=== PATIENT | male | born 1960 | race Caucasian/White ===

== ENCOUNTER → 2017-11-02 17:30 | Outpatient (CLI) | payer OTHER, SELFPAY ==
--- NOTE | 2017-11-02 08:18 | COLBX_PTH ---
PATIENT: SOFIA MEDELLIN LOC: [facility] U#:[id number] AGE/SX: 64/M ROOM: RE11/02/[address]: Dr. Jerry Dillon MD : 1960 BED: DIS: SPEC #: [id number] RECD: 11/02/17 15:34 STATUS: GINO TURNERTony #: [id number] DONG: 11/02/17 08:[address]: Jerry Dillon DEPT: SURGICAL PATHOLOGY RECD BY: Den White ENTERED: 11/05/17 07:53 SP TYPE: COLON BX OTHR DR: Dr. Catrachito Bruno MD [facility] Tissues: A - Right colon B - Sigmoid colon biopsy C - Sigmoid colon biopsy D - Rectum, NOS Procedures: Surgery Specimen Level IV HEADER OPERATION: Colonoscopy with biopsies PRE-OP DIAGNOSIS: Diarrhea/UC TISSUE SUBMITTED: A. Right colon biopsies, rule out UC, B. Sigmoid colon, rule out active UC and dysplasia, C. Sigmoid polyp biopsies, rule out dysplasia, D. Rectal biopsies, rule out active colitis MICROSCOPIC DIAGNOSIS A. Right colon, biopsy: Mild architectural change. No evidence of colitis. B. Sigmoid colon, biopsy: Mild architectural change with minimal acute inflammation. No evidence of dysplasia. C. Sigmoid polyp, biopsy: Polypoid hyperplastic change and architectural distortion. Minimal acute inflammation. No evidence of dysplasia. D. Rectum, biopsy: Chronic active colitis pattern of injury with minimal activity. No evidence of dysplasia. AM:agustin 11/06/17 COMMENT A.-D. Findings are consistent with patient?s history of ulcerative colitis. Clinical correlation is suggested. MICROSCOPIC DESCRIPTION Slides are reviewed. GROSS DESCRIPTION A. Received in fixative is one container labeled with the patient's name and designated right colon biopsy. The specimen consists of multiple irregular fragments of light bauman soft tissue that in aggregate measure 1 x 0.5 x 0.1 cm. The specimen is totally submitted in one cassette. B. Received in fixative is one container labeled with the patient's name and designated sigmoid colon biopsy. The specimen consists of multiple irregular fragments of light bauman soft tissue that in aggregate measure 0.5 x 0.2 x 0.1 cm. The specimen is totally submitted in one cassette. C. Received in fixative is one container labeled with the patient's name and designated sigmoid polyp biopsy. The specimen consists of multiple irregular fragments of light bauman soft tissue that in aggregate measure 0.5 x 0.3 x 0.1 cm. The specimen is totally submitted in one cassette. D. Received in fixative is one container labeled with the patient's name and designated rectal biopsy. The specimen consists of multiple irregular fragments of light bauman soft tissue that in aggregate measure 0.5 x 0.3 x 0.1 cm. The specimen is totally submitted in one cassette. SJ:sp 11/05/17 TC:2 CPT: 74829 x4
== END ==
PROVIDERS: Family Provider Family Medicine; Visit Provider Internal Medicine Gastroenterology
DX: K51.90 Ulcerative colitis, unspecified, without complications (principal); R19.7 Diarrhea, unspecified
CPT/HCPCS: 88305

== ENCOUNTER → 2018-04-03 16:41 | Outpatient (CLI) | payer OTHER, SELFPAY ==
[2017-04-11 09:00] VITALS: BMI 27.0
[2018-04-03 17:26] LABS: Hematocrit 46.1 % (40-54); Hemoglobin 14.7 g/dl (13.0-16.5); Mean Corp Hgb Conc 31.9 g/gl (32-36); Mean Corpuscular Hgb 29.2 pg (27.0-32.0); Mean Corpuscular Volume 91.7 fL (80-94); Mean Platelet Vol. 8.5 fl (6.2-12.0); Platelet Count 294 K/mm3 (150-450); RBC Distribution Width SD 43.3 fl (35.1-43.9); Red Blood Count 5.03 M/mm3 (4.6-6.2); White Blood Count 6.1 K/mm3 (4.4-11.0)
[2018-04-03 17:34] LABS: Scan Indicated on CBC? Y/N NO
[2018-04-03 17:50] LABS: Erythrocyte Sedimentation Rate 15 mm/hr (0-20)
[2018-04-03 18:11] LABS: ALB/GLOB Ratio 0.9 RATIO (0.9-2.4); AST(SGOT) 14 U/L (15-37); Alanine Aminotransfer ALT/SGPT 16 U/L (16-61); Albumin, Serum 3.7 g/dL (3.2-5.0); Alkaline Phosphatase 66 U/L (45-117); Anion Gap 6 (5-15); BUN 21 mg/dL (7-18); BUN/Creat Ratio 15.6 RATIO (10-20); CRP < 2.90 mg/L (0.0-3.0); Calcium,Total 8.8 mg/dL (8.5-10.1); Chloride 103 mmol/L (98-107); Creatinine, Serum 1.35 mg/dL (0.70-1.30); EST Glomerular Filtration Rate 58 mL/min (>60); Est Glom Filt Rate - Afr Amer 71 mL/min (>60); Globulin 4.2 g/dL (2.2-4.2); Glucose 78 mg/dL (74-106); Potassium 4.2 mmol/L (3.5-5.1); Protein, Total 7.9 g/dL (6.4-8.2); Sodium Level 139 mmol/L (136-145)
== END ==
PROVIDERS: Family Provider Family Medicine; PCP Family Medicine; Referring Provider Internal Medicine Gastroenterology; Visit Provider Internal Medicine Gastroenterology
DX: K51.90 Ulcerative colitis, unspecified, without complications (principal)
CPT/HCPCS: 36415; 80053; 85027; 85652; 86140

== ENCOUNTER → 2018-06-05 14:58 | Outpatient (CLI) | payer OTHER, SELFPAY ==
[2018-06-05 15:29] LABS: Albumin, Serum 3.9 g/dL (3.2-5.0); BUN 22 mg/dL (7-18); BUN/Creat Ratio 14.9 RATIO (10-20); Calcium,Total 8.6 mg/dL (8.5-10.1); Chloride 107 mmol/L (98-107); Creatinine, Serum 1.48 mg/dL (0.70-1.30); EST Glomerular Filtration Rate 52 mL/min (>60); Est Glom Filt Rate - Afr Amer 63 mL/min (>60); Glucose 97 mg/dL (74-106); Phosphorus 2.7 mg/dL (2.5-4.9); Potassium 3.9 mmol/L (3.5-5.1); Sodium Level 139 mmol/L (136-145)
== END ==
PROVIDERS: Family Provider Family Medicine; PCP Family Medicine; Visit Provider Internal Medicine Nephrology
DX: N18.3 Chronic kidney disease, stage 3 (moderate) (principal)
CPT/HCPCS: 36415; 80069

== ENCOUNTER → 2018-06-19 12:28 | Outpatient (CLI) | payer OTHER, SELFPAY ==
[2017-04-11 09:00] VITALS: BMI 27.0
--- NOTE | 2018-06-19 12:30 | US_ITS ---
STUDY: RENAL ULTRASOUND - COMPLETE REASON FOR EXAM: Male, 57 years old. Stage III chronic kidney disease TECHNIQUE: Ultrasound evaluation of the kidneys was performed with real-time and static rivera-scale imaging. COMPARISON: None. FINDINGS: RIGHT KIDNEY: Normal location of the right kidney, which is normal in size. The right kidney measures 11.6 x 4.5 x 5.7 cm. There is a normal cortex of the right kidney. The renal cortex measures 1.2 cm. There is no right renal mass or cyst. There are no right renal calculi. There is no right hydronephrosis. DISTAL RIGHT URETER: There is non-visualization of the distal right ureter. There is no demonstrated right ureterovesical junction calculus. There is a visualized right ureteral jet. LEFT KIDNEY: Normal location of the left kidney, which is normal in size. The left kidney measures 13.0 x 5.3 x 6.6 cm. There is a normal cortex of the left kidney. The renal cortex measures 1.8 cm. There is no left renal mass or cyst. There are no left renal calculi. There is no left hydronephrosis. DISTAL LEFT URETER: There is non-visualization of the distal left ureter. There is no demonstrated left ureterovesical junction calculus. There is a visualized left ureteral jet. BLADDER: The distended urinary bladder has a volume of 172 ml. There is a normal wall thickness of the distended urinary bladder. There is no demonstrated mass within the urinary bladder. There are no demonstrated bladder calculi. US/Kidney and Bladder IMPRESSION: Normal ultrasound of the kidneys and urinary bladder. Electronically Signed: Jacky Solorio MD at 20:20 EST , Service support ,
== END ==
PROVIDERS: Family Provider Family Medicine; PCP Family Medicine; Referring Provider Internal Medicine Nephrology; Visit Provider Internal Medicine Nephrology
DX: N18.3 Chronic kidney disease, stage 3 (moderate) (principal)
CPT/HCPCS: 76770

== ENCOUNTER → 2018-07-01 07:28 | Outpatient (CLI) | payer OTHER, SELFPAY ==
[2017-04-11 09:00] VITALS: BMI 27.0
[2018-07-01 09:03] LABS: Albumin, Serum 3.6 g/dL (3.2-5.0); BUN 21 mg/dL (7-18); BUN/Creat Ratio 16.4 RATIO (10-20); Calcium,Total 8.4 mg/dL (8.5-10.1); Chloride 106 mmol/L (98-107); Creatinine, Serum 1.28 mg/dL (0.70-1.30); EST Glomerular Filtration Rate 62 mL/min (>60); Est Glom Filt Rate - Afr Amer 75 mL/min (>60); Glucose 80 mg/dL (74-106); Phosphorus 3.2 mg/dL (2.5-4.9); Sodium Level 141 mmol/L (136-145)
== END ==
PROVIDERS: Family Provider Family Medicine; PCP Family Medicine; Referring Provider Internal Medicine Nephrology; Visit Provider Internal Medicine Nephrology
DX: N18.3 Chronic kidney disease, stage 3 (moderate) (principal)
CPT/HCPCS: 36415; 80069

== ENCOUNTER → 2018-11-12 15:48 | Outpatient (CLI) | payer OTHER, SELFPAY ==
[2017-04-11 09:00] VITALS: BMI 27.0
[2018-11-13 09:08] LABS: Albumin, Serum 3.7 g/dL (3.2-5.0); BUN 20 mg/dL (7-18); BUN/Creat Ratio 13.9 RATIO (10-20); Calcium,Total 8.4 mg/dL (8.5-10.1); Chloride 103 mmol/L (98-107); Creatinine, Serum 1.44 mg/dL (0.70-1.30); EST Glomerular Filtration Rate 54 mL/min (>60); Est Glom Filt Rate - Afr Amer 65 mL/min (>60); Glucose 98 mg/dL (74-106); Phosphorus 2.6 mg/dL (2.5-4.9); Potassium 3.8 mmol/L (3.5-5.1); Sodium Level 138 mmol/L (136-145)
== END ==
PROVIDERS: Family Provider Family Medicine; PCP Family Medicine; Visit Provider Internal Medicine Nephrology
DX: N18.3 Chronic kidney disease, stage 3 (moderate) (principal)
CPT/HCPCS: 36415; 80069

== ENCOUNTER 2018-12-21 23:28 | Emergency (ER) | payer OTHER, SELFPAY ==
[2018-12-21 23:29] VITALS: BP 166/100; PULSE 65; RESP 16; TEMP 36.3; O2SAT 97; BMI 27.8
--- NOTE | 2018-12-21 23:41 | RAD_ITS ---
STUDY: X-RAY - LEFT FOOT CLINICAL: Male, 58 years old. Bruising to left fifth toe TECHNIQUE: 3view(s) of the foot. COMPARISON: None. FINDINGS: Normal talus, calcaneus, and tarsal bones. Normal visualized subtalar, talonavicular, calcaneocuboid, tarsal and tarsometatarsal articulations. Normal metatarsi. Normal metatarsophalangeal joint of the great toe. Normal tibial and fibular sesamoid bones. Normal interphalangeal joint of the great toe. Normal phalanges of the great toe. Normal second through fifth metatarsophalangeal joints. Normal interphalangeal joints. There is oblique fracture of the fifth proximal phalanx and this is mildly displaced. The soft tissue structures are unremarkable. RAD/Foot min 3 Views IMPRESSION: Oblique fracture of the fifth proximal phalanx. Electronically Signed: Valdemar Weeks, at 0:10 EDT Tel , Service support ,
--- NOTE | 2018-12-22 00:01 | ED.VIS.LOWEX ---
History of Present Illness Chief Complaint: Lower Extremity Injury Informant: Patient, Significant Other Occurred: Hours - 6 Onset: Today Context: Sudden Onset Timing: Continuous Quality of Pain: Aching Location: left foot Current Severity: Mild Maximum Severity: Severe Worsened by: palpation, moving affected toes, walking Relieved by: remaining still Associated Symptoms: Negative for: Parasthesia, Weakness, Loss of Funtion Narrative: Patient accidentally jammed his toe into a door jamb, describing the left small toe deforming outward, bruising, swelling and creating an abrasion on the fourth toe. - Past Medical History (1) Benign essential HTN Status: Chronic (2) Ulcerative colitis Status: Chronic Past Medical History - Allergies and Home Meds Allergies/Adverse Reactions: Allergies Sulfa (Sulfonamide Antibiotics) Allergy (Mild, Verified 12/21/18 23:34) Rash Primary Care Physician: Catrachito Bruno MD [Primary Care Provider] - Surgical History: no surgical history Lives: Spouse/ Significant Other Smoking Status: Former smoker Drugs: None Review of Systems Musculoskeletal: Reports: Extremity Pain. Denies: Back pain Skin: Reports: Wounds Neurological: Denies: Headache, Weakness, Numbness Physical Exam Vital Signs/Narrative: Vital Signs Temp Pulse Resp BP Pulse Ox 12/21/18 23:29 97.3 F L 65 16 166/100 H 97 Inital Vital Signs reviewed: Yes - Extremity Exam Left Foot: Abrasion - Dorsum of left fourth toe which is otherwise benign and nontender, Contusion - Proximal phalanx of fifth digit, tender. Distal phalanx nontender, no subungual hematoma or nail damage. No deformity., - - Also tender in the fifth metatarsal mildly, diffusely, with swelling no deformity. No other foot or ankle tenderness. General: Well nourished, Well developed Head: Normocephalic, Atraumatic Skin: Normal color, No rash, Trauma - Abrasion. See above on fourth toe. Neurological: Alert, Oriented x3, Cranial nerves II-XII grossly intact, Normal Strength, Normal Sensation Psychological: Normal affect, Normal Mood Diagnostic/Tx/Re-eval Clinical Impression(s) from Imaging Studies Foot X-Ray 12/21/18 23:41 IMPRESSION: Oblique fracture of the fifth proximal phalanx. Electronically Signed: Valdemar Weeks, at 0:10 EDT Tel , Service support , - Medical Decision Making Toe fracture seen on x-ray as above. Vimal taped and given a postop shoe and given appropriate podiatry follow-up. ED Disposition - Plan for ED Patient: Disposition: Home or Assisted Living Diagnosis: Closed displaced fracture of lesser toe of left foot Instructions: FRACTURE, Toe [Closed] Referrals: Catrachito Bruno MD [Primary Care Provider] - Rojas You DPM [STAFF PHYSICIAN] - 1 Week
[2018-12-22 00:55] VITALS: PULSE 72; RESP 18; O2SAT 100
== END 2018-12-22 00:55 | disposition home or self-care (01) ==
PROVIDERS: Emergency Provider Emergency Medicine; Family Provider Family Medicine; PCP Family Medicine
DX: S92.512A Displaced fracture of proximal phalanx of left lesser toe(s), initial encounter for closed fracture (principal); S90.415A Abrasion, left lesser toe(s), initial encounter; W22.01XA Walked into wall, initial encounter; Y93.9 Activity, unspecified; Y92.9 Unspecified place or not applicable; Y99.9 Unspecified external cause status; K51.90 Ulcerative colitis, unspecified, without complications; I10 Essential (primary) hypertension; Z79.899 Other long term (current) drug therapy; Z88.2 Allergy status to sulfonamides; Z87.891 Personal history of nicotine dependence
CPT/HCPCS: 73630; 99282

== ENCOUNTER → 2019-02-26 07:11 | Outpatient (CLI) | payer OTHER, SELFPAY ==
[2019-02-26 08:13] LABS: Hematocrit 47.9 % (40-54); Hemoglobin 15.3 g/dL (13.0-16.5); Mean Corp Hgb Conc 31.9 g/dL (32-36); Mean Corpuscular Hgb 29.3 pg (27.0-32.0); Mean Corpuscular Volume 91.8 fL (80-94); Mean Platelet Vol. 8.5 fl (6.2-12.0); Platelet Count 305 K/mm3 (150-450); RBC Distribution Width CV 13.2 % (11.6-14.6); RBC Distribution Width SD 44.1 fl (35.1-43.9); Red Blood Count 5.22 M/mm3 (4.6-6.2); White Blood Count 5.1 K/mm3 (4.4-11.0)
[2019-02-26 08:16] LABS: Erythrocyte Sedimentation Rate 8 mm/hr (0-20)
[2019-02-26 08:49] LABS: AST(SGOT) 23 U/L (15-37); Alanine Aminotransfer ALT/SGPT 36 U/L (16-61); Albumin, Serum 3.8 g/dL (3.2-5.0); Alkaline Phosphatase 70 U/L (45-117); Anion Gap 3 (5-15); BUN 18 mg/dL (7-18); BUN/Creat Ratio 11.5 RATIO (10-20); Calcium,Total 8.7 mg/dL (8.5-10.1); Chloride 108 mmol/L (98-107); Creatinine, Serum 1.56 mg/dL (0.70-1.30); EST Glomerular Filtration Rate 49 mL/min (>60); Est Glom Filt Rate - Afr Amer 60 mL/min (>60); Glucose 101 mg/dL (74-106); Protein, Total 7.8 g/dL (6.4-8.2); Sodium Level 141 mmol/L (136-145)
[2019-02-26 09:49] LABS: Vitamin B12 956 pg/mL (211-911)
== END ==
PROVIDERS: Family Provider Family Medicine; PCP Family Medicine; Referring Provider Podiatrist; Visit Provider Podiatrist
DX: G60.8 Other hereditary and idiopathic neuropathies (principal)
CPT/HCPCS: 36415; 80053; 82607; 84443; 85027; 85652

== ENCOUNTER → 2019-04-15 07:38 | Outpatient (CLI) | payer OTHER, SELFPAY ==
[2019-04-15 08:55] LABS: Albumin, Serum 3.6 g/dL (3.2-5.0); BUN 15 mg/dL (7-18); BUN/Creat Ratio 10.2 RATIO (10-20); Calcium,Total 8.5 mg/dL (8.5-10.1); Chloride 108 mmol/L (98-107); Creatinine, Serum 1.47 mg/dL (0.70-1.30); EST Glomerular Filtration Rate 53 mL/min (>60); Est Glom Filt Rate - Afr Amer 64 mL/min (>60); Glucose 82 mg/dL (74-106); Phosphorus 2.8 mg/dL (2.5-4.9); Sodium Level 141 mmol/L (136-145)
== END ==
LOC: LAB.FUTURE 07:39 → LAB 07:41
PROVIDERS: Family Provider Family Medicine; PCP Family Medicine; Referring Provider Internal Medicine Nephrology; Visit Provider Internal Medicine Nephrology
DX: N18.3 Chronic kidney disease, stage 3 (moderate) (principal)
CPT/HCPCS: 36415; 80069

== ENCOUNTER → 2019-10-28 16:11 | Outpatient (CLI) | payer OTHER, SELFPAY ==
[2019-10-28 16:34] LABS: Hematocrit 50.1 % (40-54); Hemoglobin 16.1 g/dL (13.0-16.5); Mean Corp Hgb Conc 32.1 g/dL (32-36); Mean Corpuscular Hgb 29.9 pg (27.0-32.0); Mean Corpuscular Volume 92.9 fL (80-94); Mean Platelet Vol. 8.4 fl (6.2-12.0); Platelet Count 295 K/mm3 (150-450); RBC Distribution Width CV 12.6 % (11.6-14.6); RBC Distribution Width SD 42.8 fl (35.1-43.9); Red Blood Count 5.39 M/mm3 (4.6-6.2); White Blood Count 6.4 K/mm3 (4.4-11.0)
[2019-10-28 16:55] LABS: Albumin, Serum 3.8 g/dL (3.2-5.0); BUN 22 mg/dL (7-18); BUN/Creat Ratio 17.1 RATIO (10-20); Calcium,Total 8.5 mg/dL (8.5-10.1); Chloride 106 mmol/L (98-107); Creatinine, Serum 1.29 mg/dL (0.70-1.30); EST Glomerular Filtration Rate 61 mL/min (>60); Est Glom Filt Rate - Afr Amer 74 mL/min (>60); Glucose 92 mg/dL (74-106); Phosphorus 2.1 mg/dL (2.5-4.9); Potassium 3.5 mmol/L (3.5-5.1); Sodium Level 141 mmol/L (136-145)
== END ==
PROVIDERS: Family Provider Family Medicine; PCP Family Medicine; Referring Provider Internal Medicine Nephrology; Visit Provider Internal Medicine Nephrology
DX: N18.3 Chronic kidney disease, stage 3 (moderate) (principal)
CPT/HCPCS: 36415; 80069; 85027

== ENCOUNTER 2019-12-31 16:27 | Emergency (ER) | payer OTHER, SELFPAY ==
[2019-12-31 16:27] VITALS: BP 181/98; PULSE 63; RESP 16; TEMP 36.5; O2SAT 97; BMI 29.3
--- NOTE | 2019-12-31 16:39 | ED.DCSUM_ITS ---
History of Present Illness Chief Complaint: Foreign Body Informant: Patient Onset: Days Context: Gradual Onset Current Severity: Mild Maximum Severity: Moderate Narrative: Patient presents due to concern for continued foreign body in left lower leg. Patient states about 10 days ago he was walking in shorts and cut his left lateral lower leg on a hydrangea pillai. He was seen at urgent care where 3 splinters were removed. He was placed on Keflex. 5 days ago he was in the shower and states another large splinter came out of the wound. He is concerned that there is still something in there. He has not had fevers or chills. There is been no drainage from the wound. - Past Medical History (1) Benign essential HTN Status: Chronic (2) Inflammatory bowel disease Status: Chronic (3) Ulcerative colitis Status: Chronic Past Medical History - Allergies and Home Meds Allergies/Adverse Reactions: Allergies Sulfa (Sulfonamide Antibiotics) Allergy (Mild, Verified 12/31/19 16:28) Rash Primary Care Physician: Catrachito Bruno MD [Primary Care Provider] - Prior records reviewed: Yes Surgical History: no surgical history Lives: Spouse/ Significant Other Smoking Status: Never smoker Review of Systems General: Denies: Chills, Fever Eyes: Denies: Visual changes - bilaterally ENT: Denies: Bilateral ear pain Cardiovascular: Denies: Chest pain Respiratory: Denies: Dyspnea, Cough Gastrointestinal: Denies: Abdominal pain, Nausea, Vomiting, Diarrhea Musculoskeletal: Reports: Extremity Pain Skin: Reports: Wounds Neurological: Denies: Headache, Weakness, Parasthesia Hematologic: Denies: Easy bruising, Easy bleeding Allergy: Denies: Uticaria Physical Exam Vital Signs/Narrative: Vital Signs Temp Pulse Resp BP Pulse Ox 12/31/19 16:27 97.7 F L 63 16 181/98 H 97 Inital Vital Signs reviewed: Yes General: Well nourished, Well developed Head: Normocephalic ENT: Moist mucous membranes Neck: Supple Cardiovascular: Regular rate, Regular rhythm Respiratory: No distress, CTA bilaterally Abdomen: Soft, Nontender Extremities: - - Patient has a scabbed wound approximately 2 cm in diameter over the lateral left lower leg. No surrounding erythema. No fluctuance. Neurological: Alert, Oriented x3, Normal Strength, Normal Sensation Psychological: Normal affect Diagnostic/Tx/Re-eval - Medical Decision Making I did discuss with patient I&D. He is agreeable. Wound is locally anesthetized with 2 cc 1% lidocaine. A 2 x 1 cm X incision is made over the area. Wound is explored with curved hemostats. No further foreign body noted. Wound is irrigated and packing is placed. He will remove this in 3 days. He will continue his antibiotics. He is given phone number for wound center for follow- up as needed. ED Disposition - Plan for ED Patient: Disposition: Home or Assisted Living Diagnosis: Puncture wound of left lower leg Instructions: ED Wound Puncture General Referrals: Catrachito Bruno MD [Primary Care Provider] - Additional Instructions: Wound Center: [phone]
[2019-12-31 17:10] VITALS: BP 152/91
== END 2019-12-31 17:26 | disposition home or self-care (01) ==
LOC: ED 17:14
PROVIDERS: Emergency Provider Emergency Medicine; PCP Family Medicine
DX: S81.832A Puncture wound without foreign body, left lower leg, initial encounter (principal); K51.90 Ulcerative colitis, unspecified, without complications; I10 Essential (primary) hypertension; W22.8XXA Striking against or struck by other objects, initial encounter; Y93.01 Activity, walking, marching and hiking; Y92.9 Unspecified place or not applicable; Y99.9 Unspecified external cause status; Z88.2 Allergy status to sulfonamides; Z79.899 Other long term (current) drug therapy
CPT/HCPCS: 10060; 99281

== ENCOUNTER → 2020-04-23 09:04 | Outpatient (CLI) | payer OTHER, SELFPAY ==
[2020-04-23 09:22] LABS: Hematocrit 46.3 % (40-54); Hemoglobin 15.2 g/dL (13.0-16.5); Mean Corp Hgb Conc 32.8 g/dL (32-36); Mean Corpuscular Hgb 29.6 pg (27.0-32.0); Mean Corpuscular Volume 90.1 fL (80-94); Mean Platelet Vol. 8.5 fl (6.2-12.0); Platelet Count 267 K/mm3 (150-450); RBC Distribution Width CV 12.9 % (11.6-14.6); RBC Distribution Width SD 42.7 fl (35.1-43.9); Red Blood Count 5.14 M/mm3 (4.6-6.2); White Blood Count 6.3 K/mm3 (4.4-11.0)
[2020-04-23 09:48] LABS: Albumin, Serum 3.6 g/dL (3.2-5.0); BUN 21 mg/dL (7-18); BUN/Creat Ratio 15.3 RATIO (10-20); Calcium,Total 8.7 mg/dL (8.5-10.1); Chloride 108 mmol/L (98-107); Creatinine, Serum 1.37 mg/dL (0.70-1.30); EST Glomerular Filtration Rate 57 mL/min (>60); Est Glom Filt Rate - Afr Amer 69 mL/min (>60); Glucose 97 mg/dL (74-106); Phosphorus 2.6 mg/dL (2.5-4.9); Sodium Level 140 mmol/L (136-145)
[2020-04-23 09:58] LABS: PTHIN 66.6 pg/mL (18.4-80.1)
[2020-04-23 10:03] LABS: Vitamin D,25 Hydroxy 21.5 ng/mL
== END ==
PROVIDERS: PCP Family Medicine; Referring Provider Internal Medicine Nephrology; Visit Provider Internal Medicine Nephrology
DX: N18.30 Chronic kidney disease, stage 3 unspecified (principal)
CPT/HCPCS: 36415; 80069; 82306; 83970; 85027

== ENCOUNTER → 2020-08-05 07:14 | Outpatient (CLI) | payer OTHER, SELFPAY | PROVIDERS: PCP Family Medicine; Referring Provider Internal Medicine Gastroenterology; Visit Provider Internal Medicine Gastroenterology | DX: K51.00 Ulcerative (chronic) pancolitis without complications (principal) | CPT/HCPCS: 36415 ==

== ENCOUNTER → 2020-11-17 15:44 | Outpatient (CLI) | payer OTHER, SELFPAY ==
[2020-11-17 16:49] LABS: Albumin, Serum 3.8 g/dL (3.2-5.0); BUN 21 mg/dL (7-18); BUN/Creat Ratio 13.9 RATIO (10-20); Calcium,Total 8.8 mg/dL (8.5-10.1); Chloride 105 mmol/L (98-107); Creatinine, Serum 1.51 mg/dL (0.70-1.30); EST Glomerular Filtration Rate 51 mL/min (>60); Est Glom Filt Rate - Afr Amer 61 mL/min (>60); Glucose 110 mg/dL (74-106); Phosphorus 2.9 mg/dL (2.5-4.9); Potassium 4.1 mmol/L (3.5-5.1); Sodium Level 137 mmol/L (136-145)
[2020-11-17 16:50] LABS: Vitamin D,25 Hydroxy 46.3 ng/mL
== END ==
LOC: LAB.FUTURE 15:46 → LAB 15:54
PROVIDERS: PCP Family Medicine; Referring Provider Internal Medicine Nephrology; Visit Provider Internal Medicine Nephrology
DX: N18.31 Chronic kidney disease, stage 3a (principal); E55.9 Vitamin D deficiency, unspecified
CPT/HCPCS: 36415; 80069; 82306

== ENCOUNTER 2021-06-28 10:05 | Outpatient (CLI) | payer OTHER, SELFPAY ==
[2021-06-28 09:32] LABS: Hematocrit 45.5 % (40-54); Hemoglobin 15.3 g/dL (13.0-16.5); Mean Corp Hgb Conc 33.6 g/dL (32-36); Mean Corpuscular Hgb 30.1 pg (27.0-32.0); Mean Corpuscular Volume 89.4 fL (80-94); Mean Platelet Vol. 8.8 fl (6.2-12.0); Platelet Count 283 K/mm3 (150-450); RBC Distribution Width CV 13.2 % (11.6-14.6); RBC Distribution Width SD 43.3 fl (35.1-43.9); Red Blood Count 5.09 M/mm3 (4.6-6.2); White Blood Count 5.3 K/mm3 (4.4-11.0)
[2021-06-28 09:50] LABS: Microalbumin,Random Urine 30.2 mg/L (NO RANGE EST.); Microalbumin:Creatinine Ratio 19.5 mg/g CRE (<30 mg/g CRE)
[2021-06-28 09:57] LABS: Albumin, Serum 3.5 g/dL (3.2-5.0); BUN 23 mg/dL (7-18); BUN/Creat Ratio 18.3 RATIO (10-20); Calcium,Total 8.4 mg/dL (8.5-10.1); Chloride 107 mmol/L (98-107); Creatinine, Serum 1.26 mg/dL (0.70-1.30); EST Glomerular Filtration Rate 62 mL/min (>60); Est Glom Filt Rate - Afr Amer 75 mL/min (>60); Glucose 107 mg/dL (74-106); Magnesium 2.7 mg/dL (1.6-2.6); PTHIN 60.5 pg/mL (18.4-80.1); Phosphorus 2.3 mg/dL (2.5-4.9); Potassium 3.7 mmol/L (3.5-5.1); Sodium Level 141 mmol/L (136-145)
[2021-06-28 10:01] LABS: Vitamin D,25 Hydroxy 93.1 ng/mL
--- NOTE | 2021-06-28 10:11 | US_ITS ---
STUDY: RENAL ULTRASOUND - COMPLETE REASON FOR EXAM: Male, 60 years old. CKD STAGE 3A TECHNIQUE: Ultrasound evaluation of the kidneys was performed with real-time and static rivera-scale imaging. COMPARISON: None. FINDINGS: RIGHT KIDNEY: Normal location of the right kidney, which is normal in size. The right kidney measures 12 cm x 6.9 cm x 5.4 cm. There is a normal cortex of the right kidney. The renal cortex measures 1.6 cm. There is no right renal mass or cyst. There are no right renal calculi. There is no right hydronephrosis. DISTAL RIGHT URETER: There is non-visualization of the distal right ureter. There is no demonstrated right ureterovesical junction calculus. There is a visualized right ureteral jet. LEFT KIDNEY: Normal location of the left kidney, which is normal in size. The left kidney measures 12.2 cm x 5.6 cm x 6.9 cm. There is a normal cortex of the left kidney. The renal cortex measures 2.0 cm. There is no left renal mass or cyst. There are no left renal calculi. There is no left hydronephrosis. DISTAL LEFT URETER: There is non-visualization of the distal left ureter. There is no demonstrated left ureterovesical junction calculus. There is a visualized left ureteral jet. BLADDER: The distended urinary bladder has a volume of 155 ml. There is a normal wall thickness of the distended urinary bladder. There is no demonstrated mass within the urinary bladder. There are no demonstrated bladder calculi. US/Kidney and Bladder IMPRESSION: Normal ultrasound of the kidneys and urinary bladder. Electronically Signed: Wayne Jack MD at 12:58 EST ,
== END 2021-06-28 23:59 | disposition home or self-care (01) ==
LOC: US 10:05
PROVIDERS: PCP Family Medicine; Referring Provider Internal Medicine Nephrology; Visit Provider Internal Medicine Nephrology
DX: N18.31 Chronic kidney disease, stage 3a (principal)
CPT/HCPCS: 36415; 76770; 80069; 82043; 82306; 82570; 83735; 83970; 85027

== ENCOUNTER → 2021-10-14 | Outpatient (CLI) | payer OTHER, SELFPAY ==
[2021-10-14 08:45] LABS: Hematocrit 46.4 % (40-54); Hemoglobin 14.9 g/dL (13.0-16.5); Mean Corp Hgb Conc 32.1 g/dL (32-36); Mean Corpuscular Hgb 29.6 pg (27.0-32.0); Mean Corpuscular Volume 92.1 fL (80-94); Mean Platelet Vol. 8.9 fl (6.2-12.0); Platelet Count 255 K/mm3 (150-450); RBC Distribution Width SD 43.8 fl (35.1-43.9); Red Blood Count 5.04 M/mm3 (4.6-6.2); White Blood Count 4.8 K/mm3 (4.4-11.0)
[2021-10-14 09:06] LABS: Microalbumin,Random Urine 11.2 mg/L (NO RANGE EST.); Protein, Urine (Random) 9.8 mg/dL (<11.9); Protein:Creat Ratio 96 mg/g CRE (0-200)
[2021-10-14 09:08] LABS: Albumin, Serum 3.5 g/dL (3.2-5.0); BUN 23 mg/dL (7-18); BUN/Creat Ratio 16.7 RATIO (10-20); Calcium,Total 8.6 mg/dL (8.5-10.1); Chloride 106 mmol/L (98-107); Creatinine, Serum 1.38 mg/dL (0.70-1.30); EST Glomerular Filtration Rate 56 mL/min (>60); Est Glom Filt Rate - Afr Amer 68 mL/min (>60); Glucose 105 mg/dL (74-106); Magnesium 2.4 mg/dL (1.6-2.6); Potassium 3.8 mmol/L (3.5-5.1); Sodium Level 139 mmol/L (136-145)
[2021-10-14 09:17] LABS: PTHIN 48.4 pg/mL (18.4-80.1)
[2021-10-14 09:21] LABS: Vitamin D,25 Hydroxy 63.2 ng/mL
== END | disposition home or self-care (01) ==
LOC: LAB 07:52
PROVIDERS: PCP Family Medicine; Referring Provider Internal Medicine Nephrology; Visit Provider Internal Medicine Nephrology
DX: N18.31 Chronic kidney disease, stage 3a (principal)
CPT/HCPCS: 36415; 80069; 82043; 82306; 82570; 83735; 83970; 84156; 85027

== ENCOUNTER → 2022-05-09 | Outpatient (CLI) | payer OTHER, SELFPAY ==
[2022-05-09 11:25] LABS: Hematocrit 47.6 % (40-54); Hemoglobin 15.4 g/dL (13.0-16.5); Mean Corp Hgb Conc 32.4 g/dL (32-36); Mean Corpuscular Hgb 29.2 pg (27.0-32.0); Mean Corpuscular Volume 90.2 fL (80-94); Mean Platelet Vol. 8.5 fl (6.2-12.0); Platelet Count 273 K/mm3 (150-450); RBC Distribution Width CV 12.9 % (11.6-14.6); RBC Distribution Width SD 42.3 fl (35.1-43.9); Red Blood Count 5.28 M/mm3 (4.6-6.2)
[2022-05-09 11:48] LABS: Albumin, Serum 3.5 g/dL (3.2-5.0); BUN 21 mg/dL (7-18); BUN/Creat Ratio 15.8 RATIO (10-20); Calcium,Total 8.3 mg/dL (8.5-10.1); Chloride 106 mmol/L (98-107); Creatinine, Serum 1.33 mg/dL (0.70-1.30); EST Glomerular Filtration Rate 58 mL/min (>60); Est Glom Filt Rate - Afr Amer 71 mL/min (>60); Glucose 115 mg/dL (74-106); Magnesium 2.7 mg/dL (1.6-2.6); PTHIN 86.4 pg/mL (18.4-80.1); Phosphorus 1.9 mg/dL (2.5-4.9); Potassium 4.1 mmol/L (3.5-5.1); Sodium Level 139 mmol/L (136-145)
[2022-05-09 11:52] LABS: Vitamin D,25 Hydroxy 54.8 ng/mL
[2022-05-09 11:58] LABS: Microalbumin,Random Urine 14.2 mg/L (NO RANGE EST.); Microalbumin:Creatinine Ratio 23.7 mg/g CRE (<30 mg/g CRE)
== END | disposition home or self-care (01) ==
LOC: LAB 11:01
PROVIDERS: PCP Family Medicine; Visit Provider Internal Medicine Nephrology
DX: N18.31 Chronic kidney disease, stage 3a (principal)
CPT/HCPCS: 36415; 80069; 82043; 82306; 82570; 83735; 83970; 85027

== ENCOUNTER → 2023-01-05 | Outpatient (CLI) | payer OTHER, SELFPAY ==
[2023-01-05 07:27] LABS: Hematocrit 50.9 % (40-54); Hemoglobin 15.9 g/dL (13.0-16.5); Mean Corp Hgb Conc 31.2 g/dL (32-36); Mean Corpuscular Hgb 29.1 pg (27.0-32.0); Mean Corpuscular Volume 93.1 fL (80-94); Mean Platelet Vol. 8.6 fl (6.2-12.0); Platelet Count 296 K/mm3 (150-450); RBC Distribution Width CV 12.7 % (11.6-14.6); RBC Distribution Width SD 43.6 fl (35.1-43.9); Red Blood Count 5.47 M/mm3 (4.6-6.2); White Blood Count 6.1 K/mm3 (4.4-11.0)
[2023-01-05 08:00] LABS: Albumin, Serum 3.8 g/dL (3.2-5.0); BUN 24 mg/dL (7-18); BUN/Creat Ratio 17.6 RATIO (10-20); Calcium,Total 8.9 mg/dL (8.5-10.1); Chloride 108 mmol/L (98-107); Cholesterol 178 mg/dL (200); Creatinine, Serum 1.36 mg/dL (0.70-1.30); EST Glomerular Filtration Rate 57 mL/min (>60); Est Glom Filt Rate - Afr Amer 69 mL/min (>60); Glucose 117 mg/dL (74-106); High Density Lipoprotein 41 mg/dL; Magnesium 2.5 mg/dL (1.6-2.6); Phosphorus 2.9 mg/dL (2.5-4.9); Potassium 3.9 mmol/L (3.5-5.1); Sodium Level 141 mmol/L (136-145); Triglycerides 243 mg/dL; Very Low Density Lipoprotein 49 mg/dL (5-40)
[2023-01-05 08:05] LABS: Microalbumin:Creatinine Ratio 9.9 mg/g CRE (<30 mg/g CRE)
[2023-01-05 08:47] LABS: Vitamin D,25 Hydroxy 70.9 ng/mL
[2023-01-05 10:27] LABS: PTHIN 56.8 pg/mL (18.4-80.1)
== END | disposition home or self-care (01) ==
LOC: LAB 06:59
PROVIDERS: PCP Family Medicine; Referring Provider Internal Medicine Nephrology; Visit Provider Internal Medicine Nephrology
DX: I12.9 Hypertensive chronic kidney disease with stage 1 through stage 4 chronic kidney disease, or unspecified chronic kidney disease (principal); N18.31 Chronic kidney disease, stage 3a; E55.9 Vitamin D deficiency, unspecified
CPT/HCPCS: 36415; 80061; 80069; 82043; 82306; 82570; 83735; 83970; 85027

== ENCOUNTER → 2023-07-17 | Outpatient (CLI) | payer OTHER, SELFPAY ==
[2023-07-17 15:58] LABS: Hematocrit 50.4 % (40-54); Mean Corp Hgb Conc 31.7 g/dL (32-36); Mean Corpuscular Hgb 28.7 pg (27.0-32.0); Mean Corpuscular Volume 90.5 fL (80-94); Mean Platelet Vol. 8.8 fl (6.2-12.0); Platelet Count 304 K/mm3 (150-450); RBC Distribution Width CV 13.1 % (11.6-14.6); RBC Distribution Width SD 44.2 fl (35.1-43.9); Red Blood Count 5.57 M/mm3 (4.6-6.2); White Blood Count 9.1 K/mm3 (4.4-11.0)
[2023-07-17 16:15] LABS: Protein, Urine (Random) 18.8 mg/dL (<11.9); Protein:Creat Ratio 196 mg/g CRE (0-200)
[2023-07-17 16:34] LABS: Albumin, Serum 3.9 g/dL (3.2-5.0); BUN 18 mg/dL (7-18); BUN/Creat Ratio 14.3 RATIO (10-20); Calcium,Total 8.8 mg/dL (8.5-10.1); Chloride 104 mmol/L (98-107); Creatinine, Serum 1.26 mg/dL (0.70-1.30); EST Glomerular Filtration Rate 62 mL/min (>60); Est Glom Filt Rate - Afr Amer 75 mL/min (>60); Glucose 112 mg/dL (74-106); Phosphorus 2.4 mg/dL (2.5-4.9); Potassium 3.5 mmol/L (3.5-5.1); Sodium Level 138 mmol/L (136-145)
[2023-07-17 16:55] LABS: Vitamin D,25 Hydroxy 54.2 ng/mL
[2023-07-17 22:47] LABS: PTHIN 41.1 pg/mL (18.4-80.1)
--- OUTSIDE RECORDS SUMMARY | 2023-07-18 02:11 | XMS RPT_ITS | CCD ---
Author Name Unknown Address [address] [place] [address] Organization [facility] Care Team Providers Care Insurance Loss Adjuster Name Role Phone Haritha Beltran MD Primary Care Provider Jerry Dillon Unavailable HARITHA LOVE JR Attending Unavailable HARITHA BELTRAN Primary Care Unavailable HARITHA BELTRAN Primary Care Unavailable HARITHA BELTRAN Attending Unavailable Allergies Allergy Classification Reported Allergen(s) Allergy Type Date of Onset Reaction(s) Facility (3 sources) Sulfonamides (Antibiotic); Translations: [SULFA (SULFONAMIDE ANTIBIOTICS)] Drug Allergy 03-04-2002 Rash, Itching [facility] Medications Completed/Discontinued Medications Medication Drug Class(es) Dates Sig (Normalized) Sig (Original) amLODIPine 10 mg oral tablet (2 sources) Dihydropyridine Calcium Channel Nathalie Start: 09-28-2019 amLODIPine (NORVASC) 10 mg tablet balsalazide disodium 750 mg oral capsule (1 source) Aminosalicylate End: 09-08-2022 take 6 capsules by mouth once daily balsalazide 750 mg capsule Take by mouth. Takes 6 pills daily. 0 09/08/2022 Discontinued Problems Active Problems Problem Classification Problem Date Documented Da te Episodic/Chronic Chronic kidney disease (3 sources) Chronic kidney disease stage 3A ; Translations: [Stage 3a chronic kidney disease (HCC)] Onset: 09-08-2022 Chronic Esophageal disorders (3 sources) Lesion of esophagus; Translations: [Esophageal obstruction] Onset: 07-29-2009 Chronic Essential hypertension (3 sources) Benign essential hypertension; Translations: [Essential (primary) hypertension] Onset: 07-02-2008 Chronic Regional enteritis and ulcerative colitis (3 sources) Ulcerative pancolitis; Translations: [Ulcerative (chronic) pancolitis with rectal bleeding] Onset: 07-24-2011 Chronic Residual codes; unclassified (3 sources) Obstructive sleep apnea of adult; Translations: [Obstructive sleep apnea (adult) (pediatric)] Onset: 12-24-2011 Chronic Past or Other Problems Problem Classification Problem Date Documented Da te Episodic/Chronic Esophageal disorders (2 sources) Esophagitis; Translations: [Esophagitis, unspecified] Onset: 07-29-2009 07-29-2009 Episodic Other gastrointestinal disorders (2 sources) Dysphagia, unspecified; Translations: [Dysphagia, unspecified] Onset: 07-29-2009 07-29-2009 Episodic Residual codes; unclassified (2 sources) History of colonoscopy; Translations: [Other specified postprocedural states] Onset: 05-21-2015 04-27-2016 Episodic Results Test Name Value Interpretation Reference Range Facil ity Vital Signs Date Time Vital Sign Value Performing Clinician Faci lity 09-08-2022 12:40-0400 Body height 183.5 cm Haritha Beltran MD Work Phone: [facility] 09-08-2022 12:40-0400 Body weight 105.69 kg Haritha Beltran MD Work Phone: [facility] 09-08-2022 12:40-0400 Diastolic blood pressure 84 mm[Hg] Harihta Beltran MD Work Phone: [facility] 09-08-2022 12:40-0400 Heart rate 78 /min Haritha Beltran MD Work Phone: [facility] 09-08-2022 12:40-0400 Respiratory rate 16 /min Haritha Beltran MD Work Phone: [facility] 09-08-2022 12:40-0400 Systolic blood pressure 128 mm[Hg] Haritha Beltran MD Work Phone: [facility] Encounters Encounter Date Encounter Type Care Provider Facility Start: 04-24-2023 Telephone encounter Haritha Love MD Work Phone: Neurology Procedures Date Procedure Procedure Detail Performing Clinician Start: 11-02-2017 Colonoscopy Haritha Rodriguez MD Work Phone: Start: 04-10-2014 Lipid 1996 panel - S tatiana or Plasma Haritha Love Jr., MD Work Phone: Plan of Treatment Date Care Activity Detail Author Start: 12-22-2029 Urine microalbumin profile [facility] Start: 09-09-2027 PROSTATE CANCER SCRE ENING DISCUSSION PROSTATE CANCER SCREENING DISCUSSION [facility] Start: 09-09-2027 Prostate specific an tigen measurement Prostate Cancer Screening Discussion [facility] Start: 10-14-2024 DIABETES SCREEN [facility] Start: 10-14-2024 Diabetes Screening Diabetes Screenin g [facility] Start: 09-09-2023 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 ANNUAL PCP TEAM CHRONIC DISEASE VISIT [facility] Start: 09-09-2023 HEPATITIS A (1 of 2 - Risk 2-dose series) HEPATITIS A (1 of 2 - Risk 2-dose series) [facility] Immunizations Immunization Date Immunization Notes Care Provider Fa tyson 04-07-2022 influenza, injectabl e, quadrivalent, preservative free Haritha Beltran MD Work Phone: [facility] 04-07-2022 influenza virus vaccine, unspecified formulation Haritha Love Jr., MD Work Phone: [facility] 03-23-2021 zoster vaccine recombinant Haritha Beltran MD Work Phone: [facility] 12-23-2020 zoster vaccine recombinant Haritha Beltran MD Work Phone: [facility] 12-02-2020 COVID-19 original vaccine, full dose, monovalent (MODERNA) Haritha Beltran MD Work Phone: [facility] 11-04-2020 COVID-19 original vaccine, full dose, monovalent (MODERNA) Haritha Beltran MD Work Phone: [facility] 12-23-2019 tetanus toxoid, redu martha diphtheria toxoid, and acellular pertussis vaccine, adsorbed Haritha Beltran MD Work Phone: [facility] 03-01-2018 influenza, injectabl e, quadrivalent, contains preservative Haritha Beltran MD Work Phone: [facility] 04-26-2016 influenza, injectabl e, quadrivalent, contains preservative Haritha Beltran MD Work Phone: [facility] Work Phone: 04-03-2014 influenza, seasonal, injectable Haritha Beltran MD Work Phone: [facility] 06-05-1996 tetanus and diphther ia toxoids, not adsorbed, for adult use Haritha Beltran MD Work Phone: [facility] Payers Date Payer Category Payer Unknown MMO MMO [employer] PPO [id number] 2018-Present [phone] [address] [place] [address] PPO [id number] 2018 Unknown [id number] Social History Date Type Detail Facility Start: 09-08-2022 Tobacco smoking stat [facility] Occasional tobacco smoker [facility] History of tobacco use Pipe Smoker [facility] Start: 09-08-2022 Tobacco use and exposure User of smokeless tobacco [facility] History of tobacco use Chews Tobacco [facility] Start: 09-08-2022 End: 04-23-2023 Alcohol intake Current non-drinker of alcohol (finding) [facility] Start: 09-08-2022 Tobacco Comment Pipe 2-3 times per w [facility] Start: 1960 Sex Assigned At Not on file [facility] Start: 09-08-2022 End: 04-23-2023 History of Social function [facility] Work Phone: Start: 09-08-2022 End: 04-23-2023 Tobacco use panel [facility] Work Phone: Adult Depression Screening Assessment 0 [facility] Work Phone: Note 04-25-2023 Telephone Encounter - Elaina Hanna LPN - 04/25/2023 10:43 AM ESTTelephone Encounter - Haritha Love Jr., MD - 04/24/2023 11:02 PM EST Note Date & Type Note Facility 04-25-2023 Miscellaneous Notes Formattin g of this note might be different from the original. TC to pt who voiced understanding. Pt took machine to [facility] and they state it is working fine. He will try a new mask to see if that helps. Elaina Hanna LPN A new PAP device will depend on pt meeting insurance criteria. If DME feels new machine needed, then will inform insurance company. Haritha Loev MD Pt and his calling in regards to Dr. Love's order for a new CPAP machine for pt. Pt's insurance company if not wanting to pay for a new one since his last one is only 5 years old. He has to take his old machine into [facility] on [facility] for them to look at. Pt and wondering if Dr. Love could write something about why pt needs the new machine to see if then the insurance will cover it. Call pt after provider reviews with instructions or information. documented in this encounter [facility] Progress note 04-23-2023 Note Date & Type Note Facility 04-23-2023 Note HNO ID: [id number] Author: Haritha Love Jr., MD Service: ? Author Type: Physician Type: Progress Notes Filed: 04/23/2023 8:56 AM Note Text: NEW PATIENT (CONSULT) HISTORY AND PHYSICAL EXAM PRIMARY CARE PHYSICIAN: Haritha Beltran MD REASON FOR CONSULT: FLIP REFERRING PHYSICIAN: No ref. provider found CHIEF COMPLAINT: FLIP - insurance states I need to see a sleep doc Consultation requested by No ref. provider found for an opinion regarding chief complaint of Patient presents with: New Patient Evaluation and my final recommendations will be communicated back to the requesting physician by way of shared medical record or letter via US mail. 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 Prior baseline reportedly in 2006. PAP titration ins 2014 recmmended PAP at 8 cmH2O. Patient states med insurance wants patient to follow up with a sleep specialist. Pt tells him that even with PAP there is a heavy breathing present. Patient states he feels good on the device. Patient states he is not as refreshed in the AM as he had been. Patient states current machine is about 4-5 years old. Pt about 20 pounds heavier since underwent last PAP study. States weight gain likely due to his now working from home. No issues falling asleep start the night with bedtime about 10PM. No RLS symptoms. Not waking during the night. Wakes about 6AM. Not fully rested upon waking. Rare breakthrough snoring with PAP. Pt can tell if he is snoring because his throat becomes sore. No need for naps during the day. No parasomnias. Pt did not complete sleep questionnaire. Gets new equipment regularly. Washes PAP multiple times per week. Appears PAP device last replaced in 2016. PAP data download for past 90 days shows 80 days of use with an avg of 7 hours and 11 minutes. 95% leak is 23.1 LPM. AHI is 1.1 REVIEW OF SYSTEMS GENERAL:No weight loss, malaise or fevers. HEENT:Negative for frequent or significant headaches, No changes in hearing or vision, no nose bleeds or other nasal problems RESPIRATORY: Negative for cough, wheezing or shortness of breath. CARDIOVASCULAR: Negative for chest pain, leg swelling or palpitations. GASTROINTESTINAL: Negative for abdominal discomfort, blood in stools or black stools or change in bowel habits GENITOURINARY: No history of dysuria, frequency or incontinence MUSCULOSKELETAL: Negative for joint pain or swelling, back pain or muscle pain. NEUROLOGIC:Negative for focal numbness or weakness, headaches and dizziness or syncope, vision changes, speech/language changes, changes in gait or falls -- besides those complaints as above in HPI. LAB/IMAGING: Reviewed and include: WBC (k/uL) Date Value 05/24/2016 2.81 (L) RBC (m/uL) Date Value 05/24/2016 4.33 Hemoglobin (g/dL) Date Value 05/24/2016 13.8 Hematocrit (%) Date Value 05/24/2016 43.2 MCV (fL) Date Value 05/24/2016 99.8 MCH (pG) Date Value 05/24/2016 31.9 MCHC (g/dL) Date Value 05/24/2016 31.9 RDW-CV (%) Date Value 05/24/2016 16.0 (H) Platelet Count (k/uL) Date Value 05/24/2016 332 MPV (fL) Date Value 05/24/2016 8.7 (L) Glucose (mg/dL) Date Value 05/24/2016 81 BUN (mg/dL) Date Value 05/24/2016 26 (H) Creatinine (mg/dL) Date Value 05/24/2016 1.18 Sodium (mmol/L) Date Value 05/24/2016 143 Potassium (mmol/L) Date Value 05/24/2016 4.2 Chloride (mmol/L) Date Value 05/24/2016 103 CO2 (mmol/L) Date Value 05/24/2016 26 Protein, Total (g/dL) Date Value 05/24/2016 7.2 05/24/2016 6.6 Albumin (g/dL) Date Value 05/24/2016 4.1 Calcium (mg/dL) Date Value 05/24/2016 8.7 Alkaline Phosphatase (U/L) Date Value 05/24/2016 54 Bilirubin, Total (mg/dL) Date Value 05/24/2016 0.6 AST (U/L) Date Value 05/24/2016 13 (L) ALT (U/L) Date Value 05/24/2016 14 MEDICATIONS: amLODIPine (NORVASC) 10 mg tablet carvedilol (COREG) 3.125 mg tablet vedolizumab (ENTYVIO) 300 mg injection Inject 300 mg intravenously. Every [address] Dillon HISTORIES PAST MEDICAL HISTORY Diagnosis Date Esophagitis, unspecified GERD (gastroesophageal reflux disease) Hypertension Personal history of colonic polyps -colon polyps x 1 yr: benign Sleep apnea cpap Snoring Stricture and stenosis of esophagus Ulcerative colitis (HCC) 07/2011 FAMILY HISTORY Problem Relation Age of Onset Hypertension Father skin cancer other (Diverticulitis) Father resection -- no cancer other (ulcerative colitis) Father Colon Cancer Paternal Grandfather dx in early 80 y/o Hypertension Brother SOCIAL HISTORY Social History Tobacco Use Smoking status: Some Days (more content not included)... [facility] Progress note 09-08-2022 Note Date & Type Note Facility 09-08-2022 Note HNO ID: [id number] Author: Haritha Beltran MD Service: ? Author Type: Physician Type: Progress Notes Filed: 09/08/2022 1:41 PM Note Text: Patient presents with: Yearly Exam HPI: Patient presents today for office visit for annual check up. Seeing Dr. Beth No issues with the bowels. No bloody or black stools. No further changes. No dysphagia. Still seeing Dr. Hidalgo. Has remained in stage III ckd. Has a family hx of renal insufficiency. HYPERTENSION:bp is well controlled. No chest pain or shortness of breath. No edema. No dizziness. Has been getting labs with Dr Hidalgo twice a year FLIP: doing well. No issues with snoring or fatigue. MEDICATIONS: Current Outpatient Medications Medication Sig amLODIPine (NORVASC) 10 mg tablet carvedilol (COREG) 3.125 mg tablet vedolizumab (ENTYVIO) 300 mg injection Inject 300 mg intravenously. Every [address] Dillon No current facility-administered medications for this visit. ALLERGIES: ALLERGIES Allergen Reactions Sulfa (Sulfonamide * Rash, Itching PAST MEDICAL HISTORY Diagnosis Date Esophagitis, unspecified GERD (gastroesophageal reflux disease) Hypertension Personal history of colonic polyps -colon polyps x 1 yr: benign Sleep apnea cpap Snoring Stricture and stenosis of esophagus Ulcerative colitis (HCC) 07/2011 PAST SURGICAL HISTORY Procedure Laterality Date COLONOSCOPY 2007 Dr. Joya EGD TRANSORAL BIOPSY SINGLE/MULTIPLE 07/29/09 with dilation PAST SURGICAL HISTORY OF right hand surgery broken and pins put in FAMILY HISTORY Problem Relation Age of Onset Hypertension Father skin cancer other (Diverticulitis) Father resection -- no cancer other (ulcerative colitis) Father Colon Cancer Paternal Grandfather dx in early 80 y/o Hypertension Brother Social History Tobacco Use Smoking status: Some Days Types: Pipe Smokeless tobacco: Current Types: Chew Tobacco comments: Pipe 2-3 times per week Substance Use Topics Alcohol use: No Drug use: No Reviewed current medications, allergies, past medical history, surgical history, family history and social history today. REVIEW OF SYSTEMS GENERAL: No weight loss, malaise or fevers HEENT: Negative for frequent or significant headaches, No changes in hearing or vision, no nose bleeds or other nasal problems RESPIRATORY: Negative for cough, hemoptysis, wheezing, COPD, dyspnea or shortness of breath CARDIOVASCULAR: Negative for chest pain, leg swelling, hypertension, CHF or palpitations : No history of dysuria, frequency or incontinence SKIN: Negative for lesions, rash, and itching All other reviewed and negative other than HPI. HEALTH MAINTENANCE: Reviewed health maintenance issues today and recommended the following in detail. HEPATITIS A(1 of 2 - Risk 2-dose series) Never done PNEUMOCOCCAL(1 - PCV) Never done MMR(1 of 2 - Risk 2-dose series) Never done HEPATITIS C SCREENING Never done HIV SCREENING Never done BP CONTROLLED (<130/80) Never done PROSTATE CANCER SCREENING DISCUSSION - Had discussion with patient regarding risks and benefits of prostate screening. Allowed them to decide if they wished to proceed with screening including NICK and PSA. LIPID SCREEN due on 04/10/2019 ANNUAL PCP TEAM CHRONIC DISEASE VISIT due on 05/08/2019 COLORECTAL CANCER SCREENING - we think was done in 2020, gets every three years. DEPRESSION ASSESSMENT Never done VITALS: BP 128/84 Pulse 78 Resp 16 Ht 183.5 cm (6' 0.24 ) Wt 105.7 kg (233 lb) BMI 31.39 kg/m? Last 4 Encounter Wt Readings: Date: Wt: 09/08/2022 105.7 kg (233 lb) 10/15/2020 98.2 kg (216 lb 6.4 oz) 12/23/2019 100.2 kg (221 lb) 05/08/2018 99.8 kg (220 lb) PHYSICAL EXAMINATION: General appearance: Well appearing, alert, in no acute distress, well-hydrated, well nourished. Skin: Skin color, texture, turgor normal, no suspicious rashes or lesions Head: Normocephalic, no masses, lesions, tenderness or abnormalities Eyes: Anicteric sclera. Pupils are equally round and reactive to light. Extraocular movements are intact. Ears: External ears normal, canals clear Nose/Sinuses: Nares normal, septum midline, mucosa normal, no drainage or sinus tenderness Oropharynx: Lips, mucosa, and tongue normal, teeth and gums normal, oropharynx normal Neck: Supple, no adenopathy Lungs: Lungs clear to auscultation. No wheezing, rhonchi, rales Heart: RRR without murmur, gallop, or rubs. No ectopy Abdomen: Normal abdominal exam, Abdomen soft, non-tender. Bowel sounds normal. No masses, organomegaly Extremities: No deformities, edema, skin discoloration, clubbing or cyanosis. Good capillary refill. Musculoskeletal: No joint swelling, deformity, or tenderness Peripheral pulses: Normal Neuro: Negative. ASSESSMENT/PLAN: 1 Well adult exam - ICD9: V70.0, ICD10: Z00.00 - doing well. - LIPID PANEL BASIC 2. Essential hypertension, benign - ICD9: 401 (more content not included)... [facility] History of Present illness Narrative 09-08-2022 Haritha Beltran MD - 09/08/2022 1:06 PM EDT Note Date & Type Note Facility 09-08-2022 History of Presen t illness Narrative Patient presents with: Yearly Exam HPI: Patient presents today for office visit for annual check up. Seeing Dr. Beth No issues with the bowels. No bloody or black stools. No further changes. No dysphagia. Still seeing Dr. Hidalgo. Has remained in stage III ckd. Has a family hx of renal insufficiency. HYPERTENSION:bp is well controlled. No chest pain or shortness of breath. No edema. No dizziness. Has been getting labs with Dr Hidalgo twice a year FLIP: doing well. No issues with snoring or fatigue. MEDICATIONS: Current Outpatient Medications Medication Sig amLODIPine (NORVASC) 10 mg tablet carvedilol (COREG) 3.125 mg tablet vedolizumab (ENTYVIO) 300 mg injection Inject 300 mg intravenously. Every [address] Dillon No current facility-administered medications for this visit. ALLERGIES: ALLERGIES Allergen Reactions Sulfa (Sulfonamide * Rash, Itching PAST MEDICAL HISTORY Diagnosis Date Esophagitis, unspecified GERD (gastroesophageal reflux disease) Hypertension Personal history of colonic polyps -colon polyps x 1 yr: benign Sleep apnea cpap Snoring Stricture and stenosis of esophagus Ulcerative colitis (HCC) 07/2011 PAST SURGICAL HISTORY Procedure Laterality Date COLONOSCOPY 2007 Dr. Joya EGKd TRANSORAL BIOPSY SINGLE/MULTIPLE 07/29/09 with dilation PAST SURGICAL HISTORY OF right hand surgery broken and pins put in FAMILY HISTORY Problem Relation Age of Onset Hypertension Father skin cancer other (Diverticulitis) Father resection -- no cancer other (ulcerative colitis) Father Colon Cancer Paternal Grandfather dx in early 80 y/o Hypertension Brother Social History Tobacco Use Smoking status: Some Days Types: Pipe Smokeless tobacco: Current Types: Chew Tobacco comments: Pipe 2-3 times per week Substance Use Topics Alcohol use: No Drug use: No Reviewed current medications, allergies, past medical history, surgical history, family history and social history today. REVIEW OF SYSTEMS GENERAL: No weight loss, malaise or fevers HEENT: Negative for frequent or significant headaches, No changes in hearing or vision, no nose bleeds or other nasal problems RESPIRATORY: Negative for cough, hemoptysis, wheezing, COPD, dyspnea or shortness of breath CARDIOVASCULAR: Negative for chest pain, leg swelling, hypertension, CHF or palpitations : No history of dysuria, frequency or incontinence SKIN: Negative for lesions, rash, and itching All other reviewed and negative other than HPI. HEALTH MAINTENANCE: Reviewed health maintenance issues today and recommended the following in detail. HEPATITIS A(1 of 2 - Risk 2-dose series) Never done PNEUMOCOCCAL(1 - PCV) Never done MMR(1 of 2 - Risk 2-dose series) Never done HEPATITIS C SCREENING Never done HIV SCREENING Never done BP CONTROLLED (<130/80) Never done PROSTATE CANCER SCREENING DISCUSSION - Had discussion with patient regarding risks and benefits of prostate screening. Allowed them to decide if they wished to proceed with screening including NICK and PSA. LIPID SCREEN due on 04/10/2019 ANNUAL PCP TEAM CHRONIC DISEASE VISIT due on 05/08/2019 COLORECTAL CANCER SCREENING - we think was done in 2020, gets every three years. DEPRESSION ASSESSMENT Never done VITALS: BP 128/84 Pulse 78 Resp 16 Ht 183.5 cm (6' 0.24 ) Wt 105.7 kg (233 lb) BMI 31.39 kg/m Last 4 Encounter Wt Readings: Date: Wt: 09/08/2022 105.7 kg (233 lb) 10/15/2020 98.2 kg (216 lb 6.4 oz) 12/23/2019 100.2 kg (221 lb) 05/08/2018 99.8 kg (220 lb) PHYSICAL EXAMINATION: General appearance: Well appearing, alert, in no acute distress, well-hydrated, well nourished. Skin: Skin color, texture, turgor normal, no suspicious rashes or lesions Head: Normocephalic, no masses, lesions, tenderness or abnormalities Eyes: Anicteric sclera. Pupils are equally round and reactive to light. Extraocular movements are intact. Ears: External ears normal, canals clear Nose/Sinuses: Nares normal, septum midline, mucosa normal, no drainage or sinus tenderness Oropharynx: Lips, mucosa, and tongue normal, teeth and gums normal, oropharynx normal Neck: Supple, no adenopathy Lungs: Lungs clear to auscultation. No wheezing, rhonchi, rales Heart: RRR without murmur, gallop, or rubs. No ectopy Abdomen: Normal abdominal exam, Abdomen soft, non-tender. Bowel sounds normal. No masses, organomegaly Extremities: No deformities, edema, skin discoloration, clubbing or cyanosis. Good capillary refill. Musculoskeletal: No joint swelling, deformity, or tenderness Peripheral pulses: Normal Neuro: Negative. ASSESSMENT/PLAN: 1 Well adult exam - ICD9: V70.0, ICD10: Z00.00 - doing well. - LIPID PANEL BASIC 2. Essential hypertension, benign - ICD9: 401.1, ICD10: I10 (primary diagnosis) - good control - Continue current medication(s) - Goal of BP <130/80 - LIPID PANEL BASIC 3. Obstructive sleep apnea of adult - ICD9: 327.23, ICD10: G47.33 - continue cpap 4. Ulcerative pancolitis with rectal bleeding (HCC) - ICD9: 556.6, ICD10: K51.011 - stable 5. Stricture and stenosis of esophagus - ICD9: 530.3, ICD10: K22.2 Follow with gi. 6. Stage 3a chronic kidney disease (HCC) - ICD9: 585.3, ICD10: N18.31 - GFR is stable. Haritha Beltran MD documented in this encounter [facility] Clinical Note 08-22-2022 Note Date & Type Note Facility 08-22-2022 Note Patient Outreach (FA MPWS) MUKUND MEDELLIN ([id number]) 1960 M Date Time Provider Department 08/22/22 HARITHA BELTRAN During your visit today, we recorded the following information about you: Jarrod Varma LPN 08/22/2022 9:53 AM Signed POPULATION HEALTH NAVIGATION OUTREACH Action/FYI Pt overdue for Annual appt with PCP. BRYAN 05/08/2018. Phoned pt, notified of the same. Annual appt scheduled with PCP on 09/08 @ 1pm. Pt states he does have routine labs ordered by Nephrology (most recent 05/2022, scanned into [facility].) He follows with Nephrology (Dr. Hidalgo) every 6 months. Pt states he also has an upcoming appt with Dr. Dillon on 09/11. Patient Identified by Name and : YES, via phone Outreach Outcome/Action Spoke to patient / parent / legal guardian: Patient scheduled Did you use a PCP flex slot to schedule this appointment? No Reason for Outreach Care Gap or Scheduling/Wellness visits Payer: Payor: MMO / Plan: [employer] PPO / Product Type: PPO / Reminder: Reminder note to check Health Maintenance for items below Health Maintenance items due: HEPATITIS A(1 of 2 - Risk 2-dose series) Never done PNEUMOCOCCAL(1 - PCV) Never done MMR(1 of 2 - Risk 2-dose series) Never done HEPATITIS C SCREENING Never done HIV SCREENING Never done BP CONTROLLED (<130/80) Never done PROSTATE CANCER SCREENING DISCUSSION due on 09/10/2018 LIPID SCREEN due on 04/10/2019 ANNUAL PCP TEAM CHRONIC DISEASE VISIT due on 05/08/2019 COLORECTAL CANCER SCREENING due on 11/02/2020 COVID-19 VACCINE(3 - Moderna risk series) due on 12/30/2020 SHINGRIX VACCINE(2 of 2) due on 02/17/2021 DEPRESSION ASSESSMENT Never done Navigation Signature: Jarrod Varma LPN August 22, 2022 9:50 AM Allergies As of Date: 08/22/2022 Noted Allergy Reaction SULFA (SULFONAMIDE ANTIBIOTICS) 03/04/2002 2 - Rash 9 - Itching Date Reviewed: 10/15/2020 Reviewed by: Clara Webb LPN - Fully Assessed Reason for Visit: Appointment [[id number]] Prescriptions as of 08/22/2022 - amLODIPine (NORVASC) 10 mg tablet - carvedilol (COREG) 3.125 mg tablet - lisinopril (ZESTRIL, PRINIVIL) 10 mg tablet Take 1 tablet by mouth once daily. - vedolizumab (ENTYVIO) 300 mg injection Inject 300 mg intravenously. Every [address] Dillon - mercaptopurine (PURINETHOL) 50 mg tablet Take 50 mg by mouth twice daily. - balsalazide 750 mg capsule Take by mouth. Takes 6 pills daily. Meds Comments as of 05/17/2012: Taking 2 1/2 tabs of mercaptopurine 50mg daily, 05/17/2012 - MEM. Problem List As Of Date 08/22/2022 Noted Resolved BENIGN HYPERTENSION [I10] 07/02/2008 Dysphagia, Unspecified [R13.10] 07/29/2009 Unspecified Esophagitis [K20.90] 07/29/2009 Stricture and Stenosis of Esophagus [K22.2] 07/29/2009 Routine general medical examination at [facility]*06/15/2011 05/02/2014 Class: Chronic UC (ulcerative colitis) ([facility]) [K51.90] 07/24/2011 Obstructive sleep apnea of adult [G47.33] 12/24/2011 Obstructive sleep apnea (adult) (pediatric) [G4*06/18/2013 05/08/2018 S/P colonoscopy with polypectomy [Z98.890] 05/21/2015 Ulcerative pancolitis with rectal bleeding ([facility]*06/22/2017 05/08/2018 Encounter Status:Closed by JARROD VARMA LPN on 08/22/22 [facility] Progress note 08-22-2022 Note Date & Type Note Facility 08-22-2022 Note HNO ID: [id number] Author: Jarrod Varma LPN Service: ? Author Type: ? Type: Progress Notes Filed: 08/22/2022 9:53 AM Note Text: POPULATION HEALTH NAVIGATION OUTREACH Action/FYI Pt overdue for Annual appt with PCP. BRYAN 05/08/2018. Phoned pt, notified of the same. Annual appt scheduled with PCP on 09/08 @ 1pm. Pt states he does have routine labs ordered by Nephrology (most recent 05/2022, scanned into [facility].) He follows with Nephrology (Dr. Hidalgo) every 6 months. Pt states he also has an upcoming appt with Dr. Dillon on 09/11. Patient Identified by Name and : YES, via phone Outreach Outcome/Action Spoke to patient / parent / legal guardian: Patient scheduled Did you use a PCP flex slot to schedule this appointment? No Reason for Outreach Care Gap or Scheduling/Wellness visits Payer: Payor: MMO / Plan: MMO [employer] PPO / Product Type: PPO / Reminder: Reminder note to check Health Maintenance for items below Health Maintenance items due: HEPATITIS A(1 of 2 - Risk 2-dose series) Never done PNEUMOCOCCAL(1 - PCV) Never done MMR(1 of 2 - Risk 2-dose series) Never done HEPATITIS C SCREENING Never done HIV SCREENING Never done BP CONTROLLED (<130/80) Never done PROSTATE CANCER SCREENING DISCUSSION due on 09/10/2018 LIPID SCREEN due on 04/10/2019 ANNUAL PCP TEAM CHRONIC DISEASE VISIT due on 05/08/2019 COLORECTAL CANCER SCREENING due on 11/02/2020 COVID-19 VACCINE(3 - Moderna risk series) due on 12/30/2020 SHINGRIX VACCINE(2 of 2) due on 02/17/2021 DEPRESSION ASSESSMENT Never done Navigation Signature: Jarrod Varma LPN August 22, 2022 9:50 AM [facility] History of Past illness Narrative 06-22-2017 Note Date & Type Note Facility documented as of this encounter (statuses as of 09/08/2022) [facility] History of Past illness Narrative 06-22-2017 Note Date & Type Note Facility documented as of this encounter (statuses as of 04/26/2023) [facility] Evaluation note Note Date & Type Note Facility documented in this encounter [facility] Summary Purpose Family History No Family History Records FoundNo Family History Records Found Advance Directives No Advanced Directives Records FoundNo Advanced Directives Records Found Additional Source Comments Source Comments (unrecognize d section and content) In the event this informatio n is protected by the Federal Confidentiality of Alcohol and Drug Abuse Patient Records regulations: The Federal rules restrict any use of the information to criminally investigate or prosecute any alcohol or drug abuse patient[facility] the event this information is protected by the Federal Confidentiality of Alcohol and Drug Abuse Patient Records regulations: The Federal rules restrict any use of the information to criminally investigate or prosecute any alcohol or drug abuse patient.[facility] Reason for Visit (unrecogniz ed section and content) Reason Comments Insurance issue for new CPAP Care Teams (unrecognized sec tion and content) Insurance Loss Adjuster Relationship Specialty Start Date End Date Haritha Beltran MD [address] [place], [place] [id number] PCP - General Family Medicine 09/10/13 Jerry Dillon MD [address] [facility] [address] [place], [place] [id number] Physician Gastroenterology 07/05/17 (unrecognized sect ion and content) No Status Records FoundNo Status Records Found INFORMATION SOURCE (unrecogn ized section and content) DATE CREATED AUTHOR AUTHOR'S ORGANIZ ATION 05/24/2023 [facility] FOR RECORDS PERTAINING TO PATIENTS WHO ARE OR HAVE BEEN ENROLLED IN A CHEMICAL DEPENDENCY/SUBSTANCEABUSE PROGRAM, SOME INFORMATION MAY BE OMITTED. This clinical summary was aggregated from multiple sources. Caution should be exercised in using it in the provision of clinical care. This summary normalizes information from multiple sources, and as a consequence, information in this document may materially change the coding, format and clinical context of patient data. In addition, data may be omitted in some cases. CLINICAL DECISIONS SHOULD BE BASED ON THE PRIMARY CLINICAL RECORDS. [facility] [employer] [facility]. provides no warranty or guarantee of the accuracy or completeness of information in this document.
== END | disposition home or self-care (01) ==
LOC: LAB 15:21
PROVIDERS: PCP Family Medicine; Referring Provider Nurse Practitioner Adult Health; Visit Provider Nurse Practitioner Adult Health
DX: I10 Essential (primary) hypertension (principal)
CPT/HCPCS: 36415; 80069; 82306; 82570; 83970; 84156; 85027

== ENCOUNTER → 2024-02-19 | Outpatient (CLI) | payer OTHER, SELFPAY ==
[2024-02-19 09:01] LABS: Hematocrit 47.9 % (40-54); Hemoglobin 15.4 g/dL (13.0-16.5); Mean Corp Hgb Conc 32.2 g/dL (32-36); Mean Corpuscular Hgb 29.1 pg (27.0-32.0); Mean Corpuscular Volume 90.5 fL (80-94); Mean Platelet Vol. 8.9 fl (6.2-12.0); Platelet Count 277 K/mm3 (150-450); RBC Distribution Width SD 42.6 fl (35.1-43.9); Red Blood Count 5.29 M/mm3 (4.6-6.2); White Blood Count 5.7 K/mm3 (4.4-11.0)
[2024-02-19 09:35] LABS: Protein, Urine (Random) 14.1 mg/dL (<11.9); Protein:Creat Ratio 95 mg/g CRE (0-200)
[2024-02-19 09:42] LABS: Albumin, Serum 3.5 g/dL (3.2-5.0); BUN 20 mg/dL (7-18); BUN/Creat Ratio 13.1 RATIO (10-20); Calcium,Total 8.8 mg/dL (8.5-10.1); Chloride 107 mmol/L (98-107); Creatinine, Serum 1.53 mg/dL (0.70-1.30); EST Glomerular Filtration Rate 49 mL/min (>60); Est Glom Filt Rate - Afr Amer 60 mL/min (>60); Glucose 111 mg/dL (74-106); Phosphorus 2.8 mg/dL (2.5-4.9); Potassium 3.8 mmol/L (3.5-5.1); Sodium Level 141 mmol/L (136-145)
== END | disposition home or self-care (01) ==
LOC: LAB 07:16
PROVIDERS: PCP Family Medicine; Referring Provider Nurse Practitioner Adult Health; Visit Provider Nurse Practitioner Adult Health
DX: N18.31 Chronic kidney disease, stage 3a (principal); E55.9 Vitamin D deficiency, unspecified
CPT/HCPCS: 36415; 80069; 82306; 82570; 83970; 84156; 85027

== ENCOUNTER → 2024-06-18 | Outpatient (CLI) | payer OTHER, SELFPAY ==
[2024-06-18 18:04] LABS: Hematocrit 47.8 % (40-54); Hemoglobin 15.6 g/dL (13.0-16.5); Mean Corp Hgb Conc 32.6 g/dL (32-36); Mean Corpuscular Hgb 28.9 pg (27.0-32.0); Mean Corpuscular Volume 88.7 fL (80-94); Mean Platelet Vol. 8.8 fl (6.2-12.0); Platelet Count 293 K/mm3 (150-450); Red Blood Count 5.39 M/mm3 (4.6-6.2); White Blood Count 6.4 K/mm3 (4.4-11.0)
[2024-06-18 18:05] LABS: Erythrocyte Sedimentation Rate 16 mm/hr (0-20)
[2024-06-18 18:23] LABS: CRP < 2.90 mg/L (0.0-3.0)
== END | disposition home or self-care (01) ==
LOC: MTLAB 14:44
PROVIDERS: PCP Family Medicine; Referring Provider Internal Medicine Gastroenterology; Visit Provider Internal Medicine Gastroenterology
DX: K51.90 Ulcerative colitis, unspecified, without complications (principal)
CPT/HCPCS: 36415; 85027; 85652; 86140

== ENCOUNTER → 2024-10-15 | Outpatient (CLI) | payer OTHER, SELFPAY ==
[2024-10-15 11:04] LABS: Hematocrit 46.5 % (40-54); Hemoglobin 15.4 g/dL (13.0-16.5); Mean Corp Hgb Conc 33.1 g/dL (32-36); Mean Corpuscular Hgb 29.2 pg (27.0-32.0); Mean Corpuscular Volume 88.1 fL (80-94); Mean Platelet Vol. 8.7 fl (6.2-12.0); Platelet Count 275 K/mm3 (150-450); RBC Distribution Width CV 12.8 % (11.6-14.6); RBC Distribution Width SD 41.1 fl (35.1-43.9); Red Blood Count 5.28 M/mm3 (4.6-6.2); White Blood Count 6.1 K/mm3 (4.4-11.0)
[2024-10-15 11:50] LABS: PTHIN 25 pg/mL (11-61)
[2024-10-15 11:56] LABS: Albumin, Serum 4.1 g/dL (3.4-4.8); Anion Gap 11 (5-15); BUN 24 mg/dL (4-19); BUN/Creat Ratio 19.6 RATIO (10-20); Calcium,Total 9.3 mg/dL (7.6-11.0); Carbon Dioxide 24.6 mmol/L (21.0-32.0); Chloride 103 mmol/L (98-108); Creatinine, Serum 1.24 mg/dL (0.70-1.20); EST Glomerular Filtration Rate 66 (>60); Glucose 101 mg/dL (70-99); Phosphorus 3.2 mg/dL (2.7-4.5); Potassium 3.6 mmol/L (3.3-5.1); Sodium Level 138 mmol/L (133-145); Vitamin D,25 Hydroxy 68.6 ng/mL (30-100)
[2024-10-15 11:57] LABS: Protein, Urine (Random) 6.9 mg/dL (0.0-12.0); Protein:Creat Ratio 99 mg/g CRE (0-200)
== END | disposition home or self-care (01) ==
LOC: LAB 10:14
PROVIDERS: PCP Family Medicine; Referring Provider Nurse Practitioner Adult Health; Visit Provider Nurse Practitioner Adult Health
DX: N18.31 Chronic kidney disease, stage 3a (principal); E55.9 Vitamin D deficiency, unspecified
CPT/HCPCS: 36415; 80069; 82306; 82570; 83970; 84156; 85027